=== PATIENT | male | born 1980 | race Caucasian/White ===

== ENCOUNTER 2021-12-21 16:03 | Emergency (ER) | payer MEDICAID, SELFPAY ==
[2021-12-21 16:14] VITALS: BP 135/101; PULSE 89; RESP 20; TEMP 36.8; O2SAT 95; BMI 24.5
--- NOTE | 2021-12-21 16:32 | HMH.EDDENT ---
Discharge Plan Disposition Patient Disposition: Home, Self-Care Condition: Good Prescriptions Prescriptions: New amoxicillin-pot clavulanate 875-125 mg tablet 1 tab PO BID 10 Days Qty: 20 0RF No Action venlafaxine [Effexor] 25 mg Tablet 25 mg PO DAILY Referrals Follow up/Referrals: John Gaffney [Primary Care Provider] - See instructions Activity Restrictions/Add. Instructions Additional Instructions/Restrictions: [facility] is a walk-in clinic for patients needing immediate care due to dental pain or swelling. Clinic registration is open 7:30 - 9 a.m., Saturday through Saturday (closed on holidays and other select dates). The clinic offers services to patients 14 years of age and older.?Patients are seen on a first-come, first-served basis and may experience wait times. A $157?deposit is due upon registration, and patients are billed for any balance over their deposit. [facility] closure dates September 11 September 12 October 06 October 16 November 17 December 27 January 03January 29February [id number] Dates subject to change.?Please check our?[email or web address]?accounts for closure notices. Locations [address] [place] [id number] Call?[phone]:[phone] [email or web address]/locations/[email or web address]-tagd-jhwsjq-[facility] [place]#parking Dropoff / [email or web address]/locations/[email or web address]-snyrsx-[facility] [place]#dropoff Hours Sun:ClosedMon-Fri:8:00 am - 5:00 pmSat:Closed Clinical Impressions Clinical Impression: Dental caries, Fracture of tooth Instructions Patient Instructions: DI for Dental Pain Discharge ED Provider: David García Dental HPI General Chief complaint: Dental/Oral Stated complaint: dental pain Time Seen by Provider: 12/21/21 16:10 Mode of Arrival: Ambulatory Source of Information: Patient Limitations: No Limitations Description of Symptoms (Recalled from ER Triage Doc. by RN): pt to ed c/o left dental pain. pt states he has been having pain x3 days. History of Present Illness HPI Narrative: Patient is a 37-year-old male who presents with concern for left-sided dental pain. He states that he has a lot of teeth that need to be pulled . He says that this morning on the left upper has been bothering him more than usual. He says that sometimes is okay but it now feels like electrical pain. He says he is not able to really eat because of the pain. He has been try to get in with a dentist but has been having a difficult time finding when it takes his insurance. Denies any fever or chills. Denies any numbness or tingling. Related Data Home Medications Medication Instructions Recorded Confirmed venlafaxine 25 mg tablet 25 mg PO DAILY mood 12/21/21 12/21/21 Previous Rx's Medication Instructions Recorded amoxicillin 875 mg-potassium 1 tab PO BID 10 days #20 tabs 12/21/21 clavulanate 125 mg tablet Allergies Allergy/AdvReac Type Severity Reaction Status Date / Time No Known Allergies Allergy Verified 12/21/21 16:17 PFSH PFS Social History Smoking Status: Never smoker alcohol intake: former current occupational status: other Travel in the last 8 weeks: None ROS Obtained: Yes All systems reviewed & no additional complaints except as documented Physical Exam General General appearance: alert and in no apparent distress Head Head exam: atraumatic, normocephalic and normal inspection Eye Eye exam: Present normal appearance, PERRL and EOMI ENT ENT exam: Present normal exam, normal oropharynx, mucous membranes moist, TM's normal bilaterally and normal external ear exam Expanded ENT Exam Teeth exam: Present dental caries, fractured tooth # and dental tenderness # Neck Neck exam: Present normal inspection, full ROM and trachea midline; Absent meningismus or lymphadenopathy Chest Chest inspecti
[2021-12-21 17:24] VITALS: BP 133/85; PULSE 88; RESP 20; TEMP 36.8; O2SAT 97
== END 2021-12-21 17:26 | disposition home or self-care (01) ==
PROVIDERS: Emergency Provider Student in an Organized Health Care Education/Training Program; PCP Pediatrics
DX: S02.5XXA Fracture of tooth (traumatic), initial encounter for closed fracture (principal); K02.9 Dental caries, unspecified
CPT/HCPCS: 96372; 99284

== ENCOUNTER 2022-01-12 21:04 | Emergency (ER) | payer MEDICAID, SELFPAY ==
--- NOTE | 2022-01-12 21:08 | ECG_ITS ---
APPROVED REPORT Exam: Resting ECG HR:109 bpm ECG Measurements Heart Rate 109 AXES DC 145 P 85 QRSd 96 QRS 267 QT 314 T 82 QTc 378 Conclusion SINUS TACHYCARDIA WITH OCCASIONAL SUPRAVENTRICULAR PREMATURE COMPLEXES POSSIBLE RIGHT ATRIAL ENLARGEMENT [0.25mV P-WAVE] INDETERMINATE AXIS LEFT POSTERIOR FASCICULAR BLOCK [QRS AXIS > 109, INFERIOR Q] ABNORMAL ECG UNCONFIRMED REPORT Electronically signed by : Arjun Lara MD 01/13/2022 12:11:17
[2022-01-12 21:10] VITALS: BMI 25.1
--- NOTE | 2022-01-12 21:11 | XR_ITS ---
PROCEDURE INFORMATION: Exam: XR Chest Exam date and time: 01/12/2022 9:58 PM Age: 41 years old Clinical indication: Shortness of breath; Additional info: SOA, dyspnea, low sat TECHNIQUE: Imaging protocol: Radiologic exam of the chest. Views: 1 view. Portable AP exam 9:59 p.m. COMPARISON: No relevant prior studies available. FINDINGS: Tubes, catheters and devices: Overlying clinical research monitor electrodes and oxygen tubing. Lungs: No acute pulmonary findings. No pulmonary consolidation. Lung volumes within normal limits. Pulmonary vessels do not appear congested. Pleural spaces: Unremarkable. No significant pleural effusion. No pneumothorax. Heart/Mediastinum: The cardiac silhouette is normal. Bones/joints: There is no evidence of acute fracture. IMPRESSION: No acute findings.
[2022-01-12 21:12] VITALS: BP 146/99; PULSE 105; RESP 29; TEMP 36.8; O2SAT 97; BMI 25.1
[2022-01-12 21:21] LABS: Oxygen 100 %; Source L BRACHIAL
[2022-01-12 21:29] LABS: Basophils # 0.1 K/mm3 (0-0.2); Basophils % 1.4 % (0.1-2.0); Eosinophils % 0.4 % (0.1-12.0); Hematocrit 45.4 % (42.0-52.0); Hemoglobin 14.7 g/dL (14.1-18.0); Lymphocytes # 0.6 K/mm3 (0.7-4.5); Lymphocytes % 13.7 % (10-50); Mean Corpuscular HGB Conc 32.5 g/dL (31.8-35.4); Mean Corpuscular Hemoglobin 29.9 pg (27.0-31.2); Mean Platelet Volume 8.1 fl (7.4-10.4); Monocytes # 0.4 K/mm3 (0.1-1.0); Neutrophils # 3.2 K/mm3 (1.8-7.8); Neutrophils % 74.4 % (37.0-80.0); Platelet Count 218 K/mm3 (142-424); Red Blood Count 4.93 M/mm3 (4.60-6.20); Red Cell Distribution Width 13.2 % (11.5-17.5); White Blood Count 4.3 K/mm3 (4.8-10.8)
[2022-01-12 21:29] LABS: Coronavirus 19, PCR Not Detected (NotDetected); Influenza B, PCR Not Detected (NotDetected)
[2022-01-12 21:31] VITALS: BP 125/80; PULSE 116; RESP 28; O2SAT 99
[2022-01-12 21:35] LABS: Alanine Aminotransferase 38 U/L (12-78); Albumin/Globulin Ratio 1.7 (1.1-1.8); Alkaline Phosphatase 70 U/L (38-126); Anion Gap 15.6 mEq/L (5-15); Aspartate Amino Transferase 34 U/L (17-59); Bilirubin,Total 0.5 mg/dl (0.2-1.3); Blood Urea Nitrogen 12 mg/dl (9-20); Calcium 9.5 mg/dl (8.4-10.2); Carbon Dioxide 26 mmol/L (22.0-30.0); Chloride 103 mmol/L (98-107); Creatinine Clearance Estimated 115 mL/min (50-200); Estimated Glomerular Filt Rate 92 ml/min (>60); GFR (African American) 111 ML/MIN (>60); Glucose 113 mg/dl (74-100); Potassium 3.6 mmoL/L (3.5-5.1); Sodium 141 mmol/L (136-145)
[2022-01-12 21:40] LABS: C-Reactive Protein 27.8 mg/L (0-4)
[2022-01-12 21:49] LABS: NT Pro Brain Natriuretic Pep. 218 pg/mL (0-125)
--- NOTE | 2022-01-12 21:52 | CT_ITS ---
PROCEDURE INFORMATION: Exam: CTA Chest With Contrast Exam date and time: 01/12/2022 10:06 PM Age: 41 years old Clinical indication: Shortness of breath; Additional info: SOA, dyspnea TECHNIQUE: Imaging protocol: Computed tomographic angiography of the chest with contrast. 3D rendering (Not supervised by radiologist): MIP and/or 3D reconstructed images were created by the technologist. Radiation optimization: All CT scans at this facility use at least one of these dose optimization techniques: automated exposure control; mA and/or kV adjustment per patient size (includes targeted exams where dose is matched to clinical indication); or iterative reconstruction. Contrast material: ISOVUE 370; Contrast volume: 70 ml; Contrast route: INTRAVENOUS (IV); COMPARISON: CR XR CHEST PORTABLE 01/12/2022 9:58 PM FINDINGS: Pulmonary arteries: No definite pulmonary emboli. Some streak artifacts/motion in the lower lungs. No large, central segmental or subsegmental emboli detected. Aorta: No thoracic aortic aneurysm. No evidence of dissection in the chest. Lungs: Tiny calcified bilateral pulmonary granulomas. Noncalcified 5 mm nodule versus distended terminal blood vessel in the lateral right lower lobe series 6, image 66. No consolidation. No significant ground-glass disease. No acute findings. Pleural spaces: Unremarkable. No significant pleural effusion. No pneumothorax. Heart: The heart is not enlarged. No significant pericardial effusion. No definite coronary artery calcification is visualized. Heart RV/LV ratio: RV/LV ratio approximate 0.8, within normal limits. No significant reflux of contrast into the IVC or hepatic veins to confirm right heart strain. Lymph nodes: Small calcified mediastinal lymph nodes. No significantly enlarged lymph nodes by short axis criteria. Diaphragm: Very small hiatal hernia. Bones/joints: There are spinal degenerative changes, with multilevel disc narrrowing and spondylosis. Chronic appearing anterior wedge deformities moderate at T10, milder at other levels. Multilevel spondylosis, Schmorl's nodes. Partially calcified posterior disc protrusion T11-T12 sagittal series 1002, image 47, mildly narrowing the spinal canal. Curvilinear calcification along the posterior left glenoid rim series 6, images 13-15, likely old injury or chronic joint capsule calcification. Soft tissues: There are no soft tissue masses or fluid collections. IMPRESSION: 1. No acute pulmonary emboli. Some motion artifacts. 2. No thoracic aortic aneurysm or evidence of dissection. 3. No acute cardiopulmonary findings. No consolidation. 4. Chronic calcified pulmonary granulomas. Noncalcified 5 mm right pulmonary nodule. For patients at low risk (minimal or absent history of smoking and of other known risk factors), no routine follow-up is indicated. For patients at high risk (history of smoking or of other known risk factors), consider optional CT Chest at 12 months. (Reference: Candice) 5. Additional nonemergency and chronic findings as above, including spinal degenerative changes with multiple chronic-appearing compression deformities, and small hiatal hernia. REFERENCES: Candice Yeboah, et al. Guidelines for Management of Incidental Pulmonary Nodules Detected on CT Images: From the Fleischner Society 2017. Radiology. 2017;284(1):228-243.
--- NOTE | 2022-01-12 21:55 | PC.NURSE ---
called RT to wean pt oxygen per MD request
[2022-01-12 22:00] VITALS: BP 142/89; PULSE 104; RESP 24; O2SAT 95
[2022-01-12 22:00] LABS: Erythrocyte Sedimentation Rate 14 mm/hr (0-15)
--- NOTE | 2022-01-12 22:02 | PC.NURSE ---
RT titrated pt down to 4LPM NC from 100% NRB
[2022-01-12 22:05] LABS: Troponin I < 0.01 ng/ml (0.00-0.034)
[2022-01-12 23:00] VITALS: BP 117/84; PULSE 90; RESP 16; O2SAT 94
[2022-01-12 23:00] LABS: Influenza A, PCR Detected (NotDetected)
[2022-01-12 23:31] VITALS: BP 138/91; PULSE 89; RESP 23; O2SAT 92
[2022-01-13 00:02] VITALS: BP 105/89; PULSE 99; RESP 25; O2SAT 91
[2022-01-13 00:45] LABS: Troponin I < 0.01 ng/ml (0.00-0.034)
--- NOTE | 2022-01-13 00:57 | HMH.EDSOB ---
Discharge Plan Disposition Patient Disposition: Home, Self-Care Prescriptions Prescriptions: New benzonatate 100 mg Capsule 100 mg PO Q8H Qty: 20 0RF prednisone [prednisone] 20 mg tablet 20 mg PO BID Qty: 10 0RF oseltamivir [Tamiflu] 75 mg capsule 75 mg PO BID 5 Days Qty: 10 0RF No Action venlafaxine [Effexor] 25 mg Tablet 25 mg PO DAILY amoxicillin-pot clavulanate 875-125 mg tablet 1 tab PO BID 10 Days Qty: 20 0RF Referrals Follow up/Referrals: Provider,Referral, MD [Primary Care Provider] - See instructions Clinical Impressions Clinical Impression: Influenza A, Acute exacerbation of chronic obstructive airways disease Instructions Patient Instructions: DI for Influenza -- Adult Discharge ED Provider: Cameron Landeros Resp/SOB HPI General Chief Complaint: Shortness of Breath/Dyspnea Stated Complaint: SOA/Dyspnea/COPD Time Seen by Provider: 01/13/22 00:57 Mode of Arrival: EMS Source of Information: Patient and EMS Limitations: No Limitations Description of Symptoms (Recalled from ER Triage Doc. by RN): pt to ed via ems c/o shortness of breath. pt states he has been asthmatic x3 days and today he became more short of air. pt states he has pain on the left side of his ribs that radiates to his back. pt states he has had chest tightness but no pain. ems reports giving 125mg solu medrol and 1 duo neb in route to ed. History of Present Illness sob worse over the last few days with hx of tob use and asthma and copd - has been achey and exposed to flu - has been compliant with meds Complaint: shortness of breath and cough Onset (ago): day(s) Context: recent illness Severity: moderate Consistency/Duration: intermittent Known history of: COPD and asthma Associated symptoms: cough and wheezing Treatment prior to arrival: bronchodilator Related Data Home oxygen amount: none Home Medications Medication Instructions Recorded Confirmed venlafaxine 25 mg tablet 25 mg PO DAILY mood 12/21/21 12/21/21 Previous Rx's Medication Instructions Recorded amoxicillin 875 mg-potassium 1 tab PO BID 10 days #20 tabs 12/21/21 clavulanate 125 mg tablet benzonatate 100 mg capsule 100 mg PO Q8H #20 caps 01/13/22 oseltamivir 75 mg capsule (Tamiflu) 75 mg PO BID 5 days #10 caps 01/13/22 prednisone 20 mg tablet 20 mg PO BID #10 tabs 01/13/22 Allergies Allergy/AdvReac Type Severity Reaction Status Date / Time No Known Allergies Allergy Verified 12/21/21 16:17 Well's Criteria PE Score Clinical signs/symptoms of DVT: No PE is #1 diagnosis or equally likely: Yes Heart rate is > 100: Yes Immobile at least 3 days, or surgery in past 4 wks: No Previously, obj. diagnosed PE or DVT: No Hemoptysis: No Malignancy w/Rx within 6mo, or palliative: No PE Score: 4 Risk of Pulmonary Embolism by score: >3 pts=Hi Risk (78%) [facility] Disclaimer: The information contained in this section may have been updated after the patient was seen, as this information can be updated by other users. Social History (Updated 12/21/21 @ 17:08 by David García MD) Smoking Status: Never smoker alcohol intake: former current occupational status: other Travel in the last 8 weeks: None ROS Obtained: Yes All systems reviewed & no additional complaints except as documented Physical Exam General General appearance: alert Head Head exam: normocephalic Eye Eye exam: Present PERRL and EOMI ENT ENT exam: Present mucous membranes moist Neck Neck exam: Present trachea midline Respiratory Respiratory exam: Present wheezes; Absent respiratory distress Cardiovascular Cardiovascular exam: Present regular rate; Absent systolic murmur or rubs Abdominal Exam Abdominal exam: Present soft Extremities Exam Extremities exam: Present full ROM Neurological Exam Neurological exam: Present alert, oriented X3 and CN II-XII intact Psychiatric Psychiatric exam: Present normal affect Skin Skin exam: Absent rash
[2022-01-13 01:44] VITALS: BP 110/90; PULSE 88; RESP 18; TEMP 36.6; O2SAT 99
[2022-01-13 04:56] LABS: ABG Base Excess -5.4 mmol/L (-2.4-2.3); ABG HCO3 21.1 mmhg (22.0-26.0); ABG Oxygen Saturation 90 % (90-100); ABG PCO2 44.3 mmhg (35.0-45.0); ABG TCO2 22.5 mmhg (23-27)
== END 2022-01-13 01:58 | disposition home or self-care (01) ==
PROVIDERS: Emergency Provider Emergency Medicine
DX: J10.1 Influenza due to other identified influenza virus with other respiratory manifestations (principal); J44.1 Chronic obstructive pulmonary disease with (acute) exacerbation; Z79.899 Other long term (current) drug therapy; F41.9 Anxiety disorder, unspecified
CPT/HCPCS: 71045; 71275; 80053; 82803; 83735; 83880; 84484; 85025; 85651; 86140; 93005; 94640; 96365; 96375; 99285; C9803; Q9967; U0003; U0005

== ENCOUNTER 2022-01-13 04:42 | Observation (INO) | payer MEDICAID, SELFPAY ==
[2022-01-13] VITALS (17 sets, daily range): BP systolic 114–159; BP diastolic 66–101; PULSE 67–114; RESP 18–24; TEMP 36.6–37; O2SAT 89–95; BMI 25.8; BMI 24.7
--- NOTE | 2022-01-13 06:47 | PC.NURSE ---
Pt provided with pillow and blanket. No needs voiced at this time.
--- NOTE | 2022-01-13 07:10 | PC.NURSE ---
PT AMBULATED TO BATHROOM, UPON RETURN TO BED O2 SAT 80-81% ON ROOM AIR. ONCE BACK TO BED SAT INCREASED TO 88-90% ON ROOM AIR
--- NOTE | 2022-01-13 07:30 | HMH.EDURI ---
Discharge Plan Disposition Patient Disposition: Admitted as Observation Chief Complaint: Upper Respiratory Infection Prescriptions Prescriptions: No Action venlafaxine [Effexor] 25 mg Tablet 25 mg PO DAILY amoxicillin-pot clavulanate 875-125 mg tablet 1 tab PO BID 10 Days Qty: 20 0RF benzonatate 100 mg Capsule 100 mg PO Q8H Qty: 20 0RF prednisone [prednisone] 20 mg tablet 20 mg PO BID Qty: 10 0RF oseltamivir [Tamiflu] 75 mg capsule 75 mg PO BID 5 Days Qty: 10 0RF Referrals Follow up/Referrals: John Gaffney [Primary Care Provider] - See instructions Clinical Impressions Clinical Impression: Influenza A Discharge ED Provider: Cameron Landreos URI/Sore Throat HPI General Chief Complaint: Upper Respiratory Infection Stated Complaint: SOA Time Seen by Provider: 01/13/22 07:30 Mode of Arrival: EMS Source of Information: Patient and Medical Record Limitations: No Limitations Description of Symptoms (Recalled from ER Triage Doc. by RN): Patient states that he left the ER roughly an hour and a half ago and when he got home and walked into the house he became short of air and couldn't catch his breath so he called EMS> History of Present Illness HPI Narrative: pt with prev ed visit and went home andhad to come back - has hx of copd and asthma and tob use - has flu - pt with sob rodrigo with ambulation Complaint: cough Onset (ago): day(s) Duration: intermittent Severity: moderate Context: sick contacts Associated symptoms: fever Related Data Home Medications Medication Instructions Recorded Confirmed venlafaxine 25 mg tablet 25 mg PO DAILY mood 12/21/21 12/21/21 Previous Rx's Medication Instructions Recorded amoxicillin 875 mg-potassium 1 tab PO BID 10 days #20 tabs 12/21/21 clavulanate 125 mg tablet benzonatate 100 mg capsule 100 mg PO Q8H #20 caps 01/13/22 oseltamivir 75 mg capsule (Tamiflu) 75 mg PO BID 5 days #10 caps 01/13/22 prednisone 20 mg tablet 20 mg PO BID #10 tabs 01/13/22 Allergies Allergy/AdvReac Type Severity Reaction Status Date / Time No Known Allergies Allergy Verified 12/21/21 16:17 [facility] Disclaimer: The information contained in this section may have been updated after the patient was seen, as this information can be updated by other users. Social History (Updated 12/21/21 @ 17:08 by David García MD) Smoking Status: Current every day smoker alcohol intake: former current occupational status: other Travel in the last 8 weeks: None ROS Obtained: Yes All systems reviewed & no additional complaints except as documented Physical Exam General General appearance: alert Head Head exam: normocephalic Eye Eye exam: Present PERRL and EOMI ENT ENT exam: Present mucous membranes dry Neck Neck exam: Present trachea midline Respiratory Respiratory exam: Present wheezes and accessory muscle use; Absent respiratory distress Cardiovascular Cardiovascular exam: Present tachycardia Abdominal Exam Abdominal exam: Present soft Extremities Exam Extremities exam: Present full ROM Neurological Exam Neurological exam: Present alert, oriented X3 and CN II-XII intact Psychiatric Psychiatric exam: Present normal affect Skin Skin exam: Absent rash Medical Decision Making Medical Records Medical records reviewed: Yes I reviewed the patient's medical records. Jagdish Inquiry Pt receiving controlled substance: No Vital Signs: 01/13/22 04:42 01/13/22 05:10 01/13/22 05:10 Temperature 97.8 F Temperature Source Oral Pulse Rate 94 H 103 H Pulse Rate [Apical] 114 H Respiratory Rate 18 Blood Pressure Blood Pressure [Right Arm] 148/101 H Blood Pressure Mean Blood Pressure Mean [Right Arm] 116 Blood Pressure Source [Right Arm] Automatic Cuff Blood Pressure Position [Right Arm] Sitting 02 Sat by Pulse Oximetry 92 L Oxygen Delivery Method Room Air 01/13/22 06:30 01/13/22 07:01 Temperature Temperatu
--- NOTE | 2022-01-13 07:35 | PC.NURSE ---
DR GALICIA SPEAKING WITH
--- NOTE | 2022-01-13 07:35 | PC.NURSE ---
Dr. Landeros speaking with hospitalists.
--- NOTE | 2022-01-13 07:42 | PC.NURSE ---
DILEEP CONDE at for update on POC
--- NOTE | 2022-01-13 07:44 | PC.NURSE ---
SECURITIES AND REAL ESTATE DIRECTOR NOTIFIED OF ADMISSION AND REQUEST FOR BED
--- NOTE | 2022-01-13 09:11 | PC.NURSE ---
REPORT GIVEN TO Anny SARGENT RN
--- NOTE | 2022-01-13 09:17 | PC.NURSE ---
PT TAKEN TO SECOND FLOOR VIA WC AT THIS TIME
--- NOTE | 2022-01-13 09:23 | EXP.HP ---
History of Present Illness *Admission Date: 01/13/22 *Reason for visit:: shortness of breath, chest tightness *History of present illness: Mr. Newell is a 38-year-old gentleman with history of COPD/asthma who was presented to the ER twice in less than 24 hours because of shortness of breath. Second arrival to the ER, was brought by EMS due to shortness of breath when he got home. Found to be positive for influenza A. Had received 1 dose of Tamiflu. On repeat evaluation in the ER, patient found to be hypoxic and tachypneic. Noted to have some wheeze concerning for COPD exacerbation. Patient smokes regularly. Uses inhalers at home. Denies nausea, vomiting, chest pain, diarrhea. Patient denies any confusion. He reports a prominent cough PFSH [facility] Disclaimer: The information contained in this section may have been updated after the patient was seen, as this information can be updated by other users. Medical History Anxiety and depression Asthma COPD (chronic obstructive pulmonary disease) GERD (gastroesophageal reflux disease) Family History No significant family history Social History Smoking Status: Current every day smoker alcohol intake: former current occupational status: other Travel in the last 8 weeks: None Review of Systems Review of Systems Review of systems (narrative): 14 point review of systems performed, pertinent positives and negatives as per [facility] Meds Home Medications and Allergies Home Medications Medication Instructions Recorded Confirmed Type venlafaxine 25 mg tablet 25 mg PO DAILY mood 12/21/21 01/13/22 History albuterol sulfate 2.5 mg/3 mL 2.5 mg inhalation QID shortness of 01/13/22 01/13/22 History (0.083 %) solution for nebulization breath budesonide-formoterol HFA 160 160 inh inhalation DAILY daily 01/13/22 01/13/22 History mcg-4.5 mcg/actuation aerosol inhaler (Symbicort) omeprazole 40 mg capsule,delayed 40 mg PO DAILY GERD 01/13/22 01/13/22 History release oseltamivir 75 mg capsule (Tamiflu) 75 mg PO BID Fluid 01/13/22 01/13/22 History New Prescriptions to Start Prescriptions: Allergies Allergy/AdvReac Type Severity Reaction Status Date / Time No Known Allergies Allergy Verified 12/21/21 16:17 Exam Data for Last 24 hours Vital signs and Labs for Last 24 Hours: Temp Pulse Resp BP Pulse Ox 97.8 F 102 H 18 129/97 H 95 01/13/22 09:18 01/13/22 09:18 01/13/22 09:18 01/13/22 09:18 01/13/22 09:00 I & O for Last 24 hours: Intake & Output 01/10/22 01/11/22 01/12/22 01/13/22 23:59 23:59 23:59 23:59 Weight 79.379 kg Constitutional Constitutional: mild distress and average body habitus *Routine HEENT Exam Head: Present normocephalic Eye: Present EOMI and PERRL ENT: Present mucous membranes moist Comments: Right frontal glabellar deformity resulting from previous trauma *Routine Neck Exam Neck: Present supple; Absent JVD Routine Chest/Breast/Axilla Exam Chest wall: Absent tenderness *Routine Respiratory Exam Respiratory: Present accessory muscle use, respiratory distress, wheezes and diminished air movement; Absent rhonchi or crackles *Routine Cardiovascular Exam Cardiovascular: Present RRR, Normal S1 and Normal S2; Absent murmur *Routine Abdominal Exam Abdominal: Present soft and normoactive bowel sounds; Absent tenderness or distended *Routine Rectal Exam Rectal:: deferred *Routine Genitalia Exam Genitalia:: deferred *Routine Extremities Exam Extremities: Absent cyanosis, clubbing or edema *Routine Skin Exam Skin: Present intact; Absent cyanosis or erythema *Routine Neurological Exam Neurological: Present alert, oriented X3 and CN II-XII intact; Absent sensory deficit Routine Psychiatric Exam Psychiatric: Present normal affect and normal thought process; Absent suicidal jaquelin
--- NOTE | 2022-01-13 14:10 | HMH.PHAINT1 ---
Pharmacy Intervention Comments: MEDICATION RECONCILIATION COMPLETED ON PATIENT USING EXTERNAL FILL HISTORY FROM PHARMACY. -AMBERLY POTTER, PRATEEKD
--- NOTE | 2022-01-13 19:52 | PC.NURSE ---
Pt remains stable on 2 L NC. No complaints at this time. Pt states nebs and ativan have helped anxiety. CB in reach
[2022-01-14] VITALS (12 sets, daily range): BP systolic 107–145; BP diastolic 59–88; PULSE 71–91; RESP 17–20; TEMP 36.7–36.9; O2SAT 91–98; BMI 24.5
--- NOTE | 2022-01-14 05:37 | PC.NURSE ---
NO ACUTE CHANGES SINCE PREVIOUS ASSESSMENT. PT HAS RESTED WELL THIS SHIFT. LUNG SOUNDS REMAIN DIMINISHED. REMAINS ON 2L NASAL CANNULA AND IS TOLERATING WELL. PT C/O A HEADACHE AT THE BEGINNING OF THE SHIFT AND WAS MEDICATED PER MAR WITH ADEQUATE RELIEF. PT HAS AMBULATED IN HIS ROOM INDEPENDENTLY THIS SHIFT. CALL [facility]VAL WITHIN REACH.
[2022-01-14 09:47] LABS: Basophils # 0.1 K/mm3 (0-0.2); Basophils % 0.7 % (0.1-2.0); Eosinophils % 0.1 % (0.1-12.0); Hemoglobin 14.1 g/dL (14.1-18.0); Lymphocytes # 1.1 K/mm3 (0.7-4.5); Lymphocytes % 10.1 % (10-50); Mean Corpuscular HGB Conc 32.8 g/dL (31.8-35.4); Mean Corpuscular Hemoglobin 29.8 pg (27.0-31.2); Mean Corpuscular Volume 90.9 fl (80-94); Mean Platelet Volume 8.5 fl (7.4-10.4); Monocytes # 0.6 K/mm3 (0.1-1.0); Monocytes % 5.8 % (1.7-9.3); Neutrophils % 83.3 % (37.0-80.0); Platelet Count 230 K/mm3 (142-424); Red Blood Count 4.74 M/mm3 (4.60-6.20); Red Cell Distribution Width 13.4 % (11.5-17.5); White Blood Count 10.8 K/mm3 (4.8-10.8)
[2022-01-14 09:53] LABS: Chloride 106 mmol/L (98-107); Sodium 137 mmol/L (136-145)
[2022-01-14 09:54] LABS: Potassium 4.2 mmoL/L (3.5-5.1)
[2022-01-14 09:56] LABS: Alanine Aminotransferase 30 U/L (12-78); Albumin Level 4.3 g/dl (3.5-5.0); Albumin/Globulin Ratio 1.6 (1.1-1.8); Alkaline Phosphatase 43 U/L (38-126); Anion Gap 7.2 mEq/L (5-15); Aspartate Amino Transferase 47 U/L (17-59); Bilirubin,Total 0.2 mg/dl (0.2-1.3); Blood Urea Nitrogen 26 mg/dl (9-20); Carbon Dioxide 28 mmol/L (22.0-30.0); Creatinine Clearance Estimated 126 mL/min (50-200); Estimated Glomerular Filt Rate 106 ml/min (>60); GFR (African American) 128 ML/MIN (>60); Globulin 2.7 g/dL (1.3-3.2)
[2022-01-14 09:57] LABS: Calcium 9.3 mg/dl (8.4-10.2); Glucose 96 mg/dl (74-100)
--- NOTE | 2022-01-14 13:14 | PC.NURSE ---
RESPIRATORY CARE NOTE: SPUTUM SPECIMEN TAKEN TO LAB
--- NOTE | 2022-01-14 13:48 | EXP.ACUTE.PN ---
Subjective *Date: 01/14/22 *Time: 13:48 Interval history: For somewhat better today. Not as dyspneic. Still requiring 2 L nasal cannula oxygen. No fevers overnight. Blood pressure and heart rate normalized. Denies any nausea, vomiting, diarrhea. No chest pain. Still feels quite fatigued. Tolerating breathing treatments with good benefit. Able to ambulate to the bathroom but gets significantly winded. Medical Exam Vital signs and Labs for Last 24 Hours: Vital Signs Temp Pulse Pulse Resp BP Pulse Ox FiO2 01/14/22 12:50 18 01/14/22 12:51 75 01/14/22 12:51 80 01/14/22 12:51 96 01/14/22 10:51 98.0 F 81 18 126/83 94 L 01/14/22 07:09 98.5 F 91 H 17 107/75 L 97 01/14/22 06:08 85 01/14/22 06:08 75 01/14/22 06:08 92 L 01/14/22 03:32 98.5 F 73 20 110/72 92 L 01/14/22 00:15 85 01/14/22 00:15 84 01/13/22 23:41 98.6 F 81 18 114/66 95 01/13/22 19:35 98.3 F 90 18 152/85 H 95 01/13/22 16:00 97.8 F 89 20 139/90 91 L 01/13/22 18:29 32 01/13/22 18:29 83 01/13/22 18:28 87 Intake and Output 01/13/22 01/14/22 01/14/22 23:59 07:59 15:59 Intake Total 240 / 360 180 / 420 240 / 420 Output Total 0 / 0 0 / 0 Balance 240 / 360 180 / 420 240 / 420 Intake: Intake, Oral Amount 240 / 360 180 / 420 240 / 420 Output: Output, Urine Amount 0 / 0 0 / 0 Other: Number of Unmeasured Voids 1 1 Weight 75.07 kg Patient Weight 01/14/22 23:59 Weight 75.07 kg Laboratory Results - last 24 hr 01/14/22 09:11: WBC 10.8 D, RBC 4.74, Hgb 14.1, Hct 43.0, MCV 90.9, MCH 29.8, MCHC 32.8, RDW 13.4, Plt Count 230, MPV 8.5, Neut % (Auto) 83.3 H, Lymph % (Auto) 10.1, [place] % (Auto) 5.8, Eos % (Auto) 0.1, Baso % (Auto) 0.7, Neut # (Auto) 9.0 H, Lymph # (Auto) 1.1, [place] # (Auto) 0.6, Eos # (Auto) 0.0, Baso # (Auto) 0.1 01/14/22 09:11: Sodium 137, Potassium 4.2, Chloride 106, Carbon Dioxide 28, Anion Gap 7.2, BUN 26 H D, Creatinine 0.80, Estimated Creat Clear 126, Estimated GFR 106, Est GFR ( Amer) 128, Glucose 96, Calcium 9.3, Total Bilirubin 0.2, AST 47 D, ALT 30, Alkaline Phosphatase 43, Total Protein 7.0, Albumin 4.3, Globulin 2.7, Albumin/Globulin Ratio 1.6 I & O for Labs for Last 24 Hours: Intake & Output 01/11/22 01/12/22 01/13/22 01/14/22 23:59 23:59 23:59 23:59 Intake Total 360 / 360 420 / 420 Output Total 0 / 0 Balance 360 / 360 420 / 420 Weight 75.807 kg 75.07 kg Constitutional: Present mild distress, average body habitus and chronically ill appearing Head: Present other (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) Eyes: Absent eye pain ENT: Present normal exam Neck: Present normal inspection Respiratory: Present wheezes, crackles, diminished air movement and normal respiratory effort; Absent accessory muscle use or rhonchi Cardiac: Present Reg Rate and Rhythm GI: Present normal bowel sounds; Absent tenderness Extremities: Present normal inspection and full ROM Skin: Present intact; Absent erythema Neuro: Present Grossly Intact, alert, awake, oriented x 3 and moves all extremities Assessment and Plan *Assessment and plan (1) Influenza A: Status: Acute Category: Medical Code(s): J10.1 - Influenza due to other identified influenza virus with other respiratory manifestations (2) Acute exacerbation of chronic obstructive airways disease: Status: Acute Category: Medical Code(s): J44.1 - Chronic obstructive pulmonary disease with (acute) exacerbation (3) Hypoxemia: Status: Acute Category: Medical Code(s): R09.02 - Hypoxemia (4) Anxiety: Status: Acute Category: Medical Code(s): F41.9 - Anxiety disorder, unspecified (5) Tobacco use disorder: Status: Acute Category: Medical Code(s): F17.200 - Nicotine dependence, unspecified, uncomplicated Plan 41-year-old male
--- NOTE | 2022-01-14 17:59 | PC.NURSE ---
Addendum entered by Bala Raymundo RN 01/14/22 18:06: Correction: sputum sent to lab per rt. Original Note: Pt remains on 2 L NC. VSS. No complaints at this time. Sputum cup provided and educated pt on need for sample. Pt states he is feeling much better.
[2022-01-15] VITALS (7 sets, daily range): BP systolic 116–130; BP diastolic 62–88; PULSE 62–91; RESP 16; TEMP 36.6–36.8; O2SAT 90–98; BMI 24.0
--- NOTE | 2022-01-15 05:15 | PC.NURSE ---
NO ACUTE CHANGES SINCE PREVIOUS ASSESSMENT. PT HAS RESTED INTERMITTENTLY THIS SHIFT. LUNG SOUNDS REMAIN DIMINISHED. TOLERATING 2L WELL. NO C/O OF SOB OR N/V/D THIS SHIFT. AMBULATING TO THEW BATHROOM INDEPENDENTLY. CALL [facility] WITHIN REACH.
[2022-01-15 07:26] LABS: Basophils % 0.5 % (0.1-2.0); Eosinophils % 0.2 % (0.1-12.0); Hematocrit 44.1 % (42.0-52.0); Hemoglobin 14.6 g/dL (14.1-18.0); Lymphocytes # 1.4 K/mm3 (0.7-4.5); Lymphocytes % 25.7 % (10-50); Mean Corpuscular Hemoglobin 29.7 pg (27.0-31.2); Mean Corpuscular Volume 89.9 fl (80-94); Mean Platelet Volume 8.5 fl (7.4-10.4); Monocytes # 0.6 K/mm3 (0.1-1.0); Monocytes % 10.5 % (1.7-9.3); Neutrophils # 3.4 K/mm3 (1.8-7.8); Platelet Count 211 K/mm3 (142-424); Red Blood Count 4.91 M/mm3 (4.60-6.20); Red Cell Distribution Width 13.2 % (11.5-17.5); White Blood Count 5.3 K/mm3 (4.8-10.8)
[2022-01-15 07:31] LABS: Chloride 104 mmol/L (98-107)
[2022-01-15 07:32] LABS: Potassium 3.7 mmoL/L (3.5-5.1); Sodium 136 mmol/L (136-145)
[2022-01-15 07:34] LABS: Blood Urea Nitrogen 25 mg/dl (9-20); Creatinine Clearance Estimated 124 mL/min (50-200); Estimated Glomerular Filt Rate 106 ml/min (>60); GFR (African American) 128 ML/MIN (>60)
[2022-01-15 07:35] LABS: Anion Gap 9.7 mEq/L (5-15); Calcium 9.1 mg/dl (8.4-10.2); Carbon Dioxide 26 mmol/L (22.0-30.0); Glucose 87 mg/dl (74-100)
--- NOTE | 2022-01-15 07:56 | EXP.DC.SUM ---
General Admission date:: 01/13/22 Discharge date: 01/15/22 HPI HPI HPI: Mr. Newell is a 38-year-old gentleman with history of COPD/asthma who was presented to the ER twice in less than 24 hours because of shortness of breath. Second arrival to the ER, was brought by EMS due to shortness of breath when he got home. Found to be positive for influenza A. Had received 1 dose of Tamiflu. On repeat evaluation in the ER, patient found to be hypoxic and tachypneic. Noted to have some wheeze concerning for COPD exacerbation. Patient smokes regularly. Uses inhalers at home. Denies nausea, vomiting, chest pain, diarrhea. Patient denies any confusion. He reports a prominent cough Hospital Course Hospital Course Hospital Course: 41-year-old male with COPD exacerbation secondary to flu.? New oxygen requirement.? Admitted for supportive therapy.? Problems addressed as follows: COPD with exacerbation Flu A -Admitted with oxygen requirement and significant wheeze/bronchospasm on exam. Started on Tamiflu for influenza A. Treated aggressively with dexamethasone for COPD exacerbation/bronchospasm. Tolerated budesonide nebs and DuoNebs during admission. Able to wean off oxygen during hospitalization. Stable for discharge home. Will complete course of Tamiflu. Transition from albuterol to DuoNebs for home usage. Resume home ICS/lab inhaler. 1 more day of dexamethasone p.o. Recommend follow-up with PCP in the next 1 to 2 weeks for further evaluation. No oxygen requirement on day of discharge. Anxiety -Continued venlafaxine during admission. Required 2 doses of Ativan on day of admission due to worsening anxiety secondary to dyspnea. Gradual improvement. Recommend increasing venlafaxine, sent higher dose at discharge. Further management deferred to PCP. Stable for discharge home. Exam Data for Last 24 hours Vital signs and Labs for Last 24 Hours: Temp Pulse Resp BP Pulse Ox FiO2 98.3 F 65 16 130/88 98 32 01/15/22 03:39 01/15/22 06:25 01/15/22 03:39 01/15/22 03:39 01/15/22 06:25 01/13/22 18:29 Laboratory Results - last 24 hr 01/14/22 09:11: WBC 10.8 D, RBC 4.74, Hgb 14.1, Hct 43.0, MCV 90.9, MCH 29.8, MCHC 32.8, RDW 13.4, Plt Count 230, MPV 8.5, Neut % (Auto) 83.3 H, Lymph % (Auto) 10.1, [place] % (Auto) 5.8, Eos % (Auto) 0.1, Baso % (Auto) 0.7, Neut # (Auto) 9.0 H, Lymph # (Auto) 1.1, [place] # (Auto) 0.6, Eos # (Auto) 0.0, Baso # (Auto) 0.1 01/14/22 09:11: Sodium 137, Potassium 4.2, Chloride 106, Carbon Dioxide 28, Anion Gap 7.2, BUN 26 H D, Creatinine 0.80, Estimated Creat Clear 126, Estimated GFR 106, Est GFR ( Amer) 128, Glucose 96, Calcium 9.3, Total Bilirubin 0.2, AST 47 D, ALT 30, Alkaline Phosphatase 43, Total Protein 7.0, Albumin 4.3, Globulin 2.7, Albumin/Globulin Ratio 1.6 01/15/22 06:40: WBC 5.3 D, RBC 4.91, Hgb 14.6, Hct 44.1, MCV 89.9, MCH 29.7, MCHC 33.0, RDW 13.2, Plt Count 211, MPV 8.5, Neut % (Auto) 63.0, Lymph % (Auto) 25.7, [place] % (Auto) 10.5 H, Eos % (Auto) 0.2, Baso % (Auto) 0.5, Neut # (Auto) 3.4, Lymph # (Auto) 1.4, [place] # (Auto) 0.6, Eos # (Auto) 0.0, Baso # (Auto) 0.0 01/15/22 06:40: Sodium 136, Potassium 3.7, Chloride 104, Carbon Dioxide 26, Anion Gap 9.7, BUN 25 H, Creatinine 0.80, Estimated Creat Clear 124, Estimated GFR 106, Est GFR ( Amer) 128, Glucose 87, Calcium 9.1 I & O for Last 24 hours: Intake & Output 01/12/22 01/13/22 01/14/22 01/15/22 23:59 23:59 23:59 23:59 Intake Total 360 / 360 780 / 780 Output Total 0 / 0 Balance 360 / 360 780 / 780 Weight 75.807 kg 75.07 kg 73.624 kg Microbiology Reports for the Last 24 Hours: Microbiology 01/14/22 13:05 Sputum - Expectorated Sputum Gram Stain - Final Constitutional Constitutional: no acute distress, average body habitus and cooperative *Routine HEENT Exam Head: Present normocephalic Eye: Present EOMI and PERRL ENT: Present mucous membranes moist Comments: right glabellar deformity (chronic) *Rout
--- NOTE | 2022-01-15 10:36 | HMH.PHAINT1 ---
Pharmacy Intervention Comments: DISCHARGE MEDICATION COUNSELING PROVIDED. DISCUSSED THE FOLLOWING NEW MEDICATIONS: DEXAMETHASONE (STEROID, FOR INFECTION, TAKE DAILY, RECOMMEND TAKING WITH FOOD EARLIER IN THE DAY, MAY CAUSE UPSET STOMACH/DIARRHEA, INSOMNIA POSSIBLE), DUONEBS (BREATHING TREATMENT, EVERY 6 HOURS, MAY CAUSE JITTERY/SHAKINESS), VENLAFAXINE CHANGED TO THE IR FORMULATION FROM THE ER FORMULATION, TAKE TWICE DAILY. NEW TAMIFLU RX SENT IN, STOP THE ALBUTEROL AND VENLAFAXINE ER PRESCRIPTION. PATIENT VERBALIZED NO QUESTIONS AT THIS TIME.
--- NOTE | 2022-01-17 11:06 | CARE MANAGER ---
Attempted to contact patient x2 related to hospital discharge. Left VM. BECKY Brasher
--- NOTE | 2022-01-17 12:00 | CARE MANAGER ---
Spoke with patient to discuss discharge status. Patient stated that he has picked up medications prescribed at discharge, and is planning to schedule f/u appt with PCP. No known concerns at this time.
== END 2022-01-15 12:28 | disposition home or self-care (01) ==
LOC: ER 07:41 → 2ND 07:50
PROVIDERS: Admitting Provider Internal Medicine Adolescent Medicine; Emergency Provider Emergency Medicine; PCP Pediatrics; Visit Provider Internal Medicine Adolescent Medicine
DX: J10.1 Influenza due to other identified influenza virus with other respiratory manifestations (principal); J44.1 Chronic obstructive pulmonary disease with (acute) exacerbation; F17.210 Nicotine dependence, cigarettes, uncomplicated; Z79.899 Other long term (current) drug therapy
CPT/HCPCS: 36415; 80048; 80053; 85025; 87070; 87205; 94640; 94761; 99285; G0378

== ENCOUNTER 2023-03-22 11:20 | Emergency (ER) | payer MEDICAID, SELFPAY ==
[2023-03-22 11:50] VITALS: BP 137/98; PULSE 74; RESP 18; TEMP 36.7; O2SAT 98; BMI 26.6
--- NOTE | 2023-03-22 12:05 | ED_ITS ---
Discharge Plan Disposition Patient Disposition: Home, Self-Care Condition: Good Prescriptions Prescriptions: New amoxicillin-pot clavulanate 875-125 mg Tablet 1 tab PO Q12H Qty: 20 0RF ibuprofen 800 mg tablet 800 mg PO Q8H PRN (Reason: pain) Qty: 90 0RF No Action omeprazole 40 mg Capsule,Delayed Release(Dr/Ec) 40 mg PO DAILY budesonide-formoterol [Symbicort] 160-4.5 mcg/actuation HFA aerosol inhaler 2 inh INHALATION BID venlafaxine 37.5 mg Tablet 37.5 mg PO BID 30 Days Qty: 60 0RF ipratropium-albuterol 0.5 mg-3 mg(2.5 mg base)/3 mL Solution For Nebulization 3 ml inhalation Q6RT 30 Days Qty: 360 0RF Referrals Follow up/Referrals: Alannah Louis DO [Primary Care Provider] - See instructions Activity Restrictions/Add. Instructions Additional Instructions/Restrictions: Use dental balls as needed as well I have given you a list of dentists to call to see if they accept your insurance Clinical Impressions Clinical Impression: Dental caries Instructions Patient Instructions: DI for Dental Pain Discharge ED Provider: Geri Murguia [facility] General Stated complaint: Pain in right jaw, teeth, side of teeth Mode of Arrival: Ambulatory Source of Information: Patient Limitations: No Limitations Time Seen by Provider: 03/22/23 12:05 Description of Symptoms (Recalled from Triage Doc. by RN): Pt stated that he has pain in jaw and ear. HEENT Symptoms (Recalled from RN notes): Yes Resp Symptoms (Recalled from RN notes): No Skin Symptoms (Recalled from RN notes): No MS Symptoms (Recalled from RN notes): No Functional Status (Recalled from RN notes): n/a History of Present Illness Provider Complaint: Right upper jaw pain radiating into right ear and neck X3-4 days. Known dental problems but hasn't found a dentist to take his insurance. Onset (ago): day(s) (4) Location: mouth Relieving factors: none Exacerbating factors: none Associated symptoms: denies other symptoms Treatments prior to arrival: none Related Data Home Medications Medication Instructions Recorded Confirmed budesonide-formoterol HFA 160 2 inh inhalation BID Breathing 01/13/22 03/22/23 mcg-4.5 mcg/actuation aerosol problems inhaler (Symbicort) omeprazole 40 mg capsule,delayed 40 mg PO DAILY GERD 01/13/22 03/22/23 release Previous Rx's Medication Instructions Recorded ipratropium 0.5 mg-albuterol 3 mg 3 ml inhalation Q6RT 30 days #360 01/15/22 (2.5 mg base)/3 mL nebulization mL soln venlafaxine 37.5 mg tablet 37.5 mg PO BID 30 days #60 tabs 01/15/22 amoxicillin 875 mg-potassium 1 tab PO Q12H #20 tabs 03/22/23 clavulanate 125 mg tablet ibuprofen 800 mg tablet 800 mg PO Q8H PRN pain #90 tabs 03/22/23 Allergies Allergy/AdvReac Type Severity Reaction Status Date / Time No Known Allergies Allergy Verified 03/22/23 11:59 Worker's Comp Is this a Worker's Comp case?: No [facility] Disclaimer: The information contained in this section may have been updated after the patient was seen, as this information can be updated by other users. Medical History Anxiety and depression Asthma COPD (chronic obstructive pulmonary disease) GERD (gastroesophageal reflux disease) Family History No significant family history Social History Smoking Status: Current every day smoker alcohol intake: former current occupational status: other Travel in the last 8 weeks: None ROS Obtained: Yes All systems reviewed & no additional complaints except as documented ENT Ears, Nose, Mouth, and Throat: Reports dental pain Physical Exam General General appearance: alert and in no apparent distress ENT ENT exam: Present normal exam, normal oropharynx, mucous membranes moist, TM's normal bilaterally and normal external ear exam Expanded ENT Exam Teeth exam: Present dental caries, fractured tooth #, dental tenderness # and gingival swelling Neck Neck exam: Present normal inspection, full ROM and trachea midline; Absent meningismus or lymphadenopathy Chest Chest inspection: Present normal inspection and symmetric chest wall rise; Absent tenderness Respiratory Respiratory exam: Present normal lung sounds bilaterally; Absent respiratory distress Cardiovascular Cardiovascular exam: Present regular rate and normal rhythm; Absent JVD Extremities Exam Extremities exam: Present normal inspection, full ROM and normal capillary refill; Absent calf tenderness Neurological Exam Neurological exam: Present alert and oriented X3 Psychiatric Psychiatric exam: Present normal affect and normal mood Skin Skin exam: Present warm, dry, intact and normal color Lymphatic Lymphatic Findings: no adenopathy Medical Decision Making Jagdish Inquiry Pt receiving controlled substance: No Vital Signs: 03/22/23 11:50 Temperature 98.0 F Temperature Source Oral Pulse Rate [Right Radial] 74 Respiratory Rate 18 Blood Pressure [Right Arm] 137/98 H Blood Pressure Mean [Right Arm] 111 Blood Pressure Source [Right Arm] Automatic Cuff Blood Pressure Position [Right Arm] Sitting 02 Sat by Pulse Oximetry 98 Oxygen Delivery Method Room Air
[2023-03-22 12:38] VITALS: BP 137/98; PULSE 74; RESP 14; TEMP 36.7; O2SAT 98
== END 2023-03-22 12:38 | disposition home or self-care (01) ==
PROVIDERS: Emergency Provider Physician Assistant; PCP Student in an Organized Health Care Education/Training Program
DX: R68.84 Jaw pain (principal); K08.89 Other specified disorders of teeth and supporting structures; F17.210 Nicotine dependence, cigarettes, uncomplicated; J44.9 Chronic obstructive pulmonary disease, unspecified; K21.9 Gastro-esophageal reflux disease without esophagitis
CPT/HCPCS: 99204; 99212; G0463